=== PATIENT | female | born 1995 | race American Indian/Alaskan Native ===

== ENCOUNTER 2017-05-30 14:55 | Emergency (ER) | payer SELFPAY ==
[2017-05-30 15:12] VITALS: BP 126/75
[2017-05-30 16:48] LABS: HCG Qualitative,Urine Negative (Negative)
[2017-05-30 16:54] LABS: Bilirubin,Urine NEG (Negative); Blood,Urine NEG (Negative); Color,Urine Yellow (Yellow); Mucus,Urine FEW /HPF; Protein,Urine <15 mg/dL mg/dL (Negative)
[2017-05-30 16:56] LABS: WBC,Urine < 1.0 /HPF (0.0-6.0)
--- NOTE | 2017-05-30 18:17 | XRay Report ---
FINAL REPORT PROCEDURE: XR FOOT 3+V RT TECHNIQUE: Right foot, three views HISTORY: Fall/injury COMPARISON: No prior studies are available for comparison. FINDINGS: No acute fracture or dislocation is seen. No focal osseous lesion. No radiopaque foreign body IMPRESSION: No acute fracture is identified
[2017-05-30] MEDS ORDERED: ULTRAM PO ONE (19:09)
[2017-05-30] MEDS ORDERED: MOTRIN PO ONE (19:09)
--- NOTE | 2017-05-30 19:14 | Emergency Department Report ---
ED Extremity Problem HPI - General Chief complaint: Extremity Injury, Lower Stated complaint: RIGHT FOOT PAIN Time Seen by Provider: 05/30/17 19:04 Source: patient Mode of arrival: Ambulatory Limitations: No Limitations - History of Present Illness Initial comments: Patient is a 22-year-old female who was walking down stairs today and tripped and fell. Patient states she has pain at the right foot laterally. Patient states taking pain 8 out of 10 in severity. It's worse when she bears weight or tries to move the foot. Better with rest. She denies any other injury patient states that the ankle and calf for fine and she has no pain - Related Data Previous Rx's Medication Instructions Recorded Last Taken Type Acetaminophen/Codeine [Tylenol #3] 1 tab PO Q6H PRN #15 tab 02/08/15 Unknown Rx HYDROcodone/APAP 5-325 [[place] 1 each PO Q6HR PRN #12 tablet 05/30/17 Unknown Rx 5/325] Ibuprofen [Motrin] 800 mg PO Q8HR PRN #20 tablet 05/30/17 Unknown Rx Allergies Allergy/AdvReac Type Severity Reaction Status Date / Time No Known Allergies Allergy Unverified 02/08/15 13:31 ED Review of Systems ROS: Stated complaint: RIGHT FOOT PAIN Other details as noted in HPI Comment: All other systems reviewed and negative ED Past Medical Hx - Past Medical History Previous Medical History?: No - Surgical History Past Surgical History?: No - Social History Smoking Status: Current Every Day Smoker - Medications Home Medications: Home Medications Medication Instructions Recorded Confirmed Last Taken Type Acetaminophen/Codeine [Tylenol #3] 1 tab PO Q6H PRN #15 tab 02/08/15 Unknown Rx HYDROcodone/APAP 5-325 [[place] 1 each PO Q6HR PRN #12 tablet 05/30/17 Unknown Rx 5/325] Ibuprofen [Motrin] 800 mg PO Q8HR PRN #20 tablet 05/30/17 Unknown Rx ED Physical Exam - General Limitations: No Limitations General appearance: alert, in no apparent distress - Head Head exam: Present: atraumatic, normocephalic - Eye Eye exam: Present: normal appearance - ENT ENT exam: Present: mucous membranes moist - Neck Neck exam: Present: normal inspection - Respiratory Respiratory exam: Absent: respiratory distress - Cardiovascular Cardiovascular Exam: Present: regular rate, normal rhythm. Absent: systolic murmur, diastolic murmur, rubs, gallop - GI/Abdominal GI/Abdominal exam: Present: soft - Extremities Exam Extremities exam: Present: normal inspection, tenderness (patient has tenderness on palpation of the right lateral foot.) - Back Exam Back exam: Present: normal inspection - Neurological Exam Neurological exam: Present: alert, oriented X3 - Psychiatric Psychiatric exam: Present: normal affect, normal mood - Skin Skin exam: Present: warm, dry, intact, normal color. Absent: rash ED Course Vital Signs 05/30/17 15:02 Temperature 98 F Pulse Rate 80 Respiratory 16 Rate Blood Pressure 126/75 O2 Sat by Pulse 98 Oximetry ED Medical Decision Making - Radiology Data Radiology results: image reviewed interpreted by me: No acute fracture Critical care attestation.: If time is entered above; I have spent that time in minutes in the direct care of this critically ill patient, excluding procedure time. ED Disposition Clinical Impression: Foot sprain Qualifiers: Encounter type: initial encounter Laterality: right Qualified Code(s): S93.601A - Unspecified sprain of right foot, initial encounter Disposition: - TO HOME OR SELFCARE Is pt being admited?: No Does the pt Need Aspirin: No Condition: Stable Instructions: Foot Sprain (ED) Prescriptions: HYDROcodone/APAP 5-325 [[place] 5/325] 1 each PO Q6HR PRN #12 tablet PRN Reason: Pain Ibuprofen [Motrin] 800 mg PO Q8HR PRN #20 tablet PRN Reason: Pain Referrals: PRIMARY CARE, [Primary Care Provider] - 3-5 Days
== END 2017-05-30 19:49 | disposition home or self-care (01) ==
LOC: ED 14:55
DX: S93.601A Unspecified sprain of right foot, initial encounter (principal); F17.200 Nicotine dependence, unspecified, uncomplicated; W01.198A Fall on same level from slipping, tripping and stumbling with subsequent striking against other object, initial encounter; Y93.89 Activity, other specified; Y92.89 Other specified places as the place of occurrence of the external cause; Y99.8 Other external cause status
CPT/HCPCS: 81001; 81025

== ENCOUNTER 2019-04-28 11:00 | Emergency (ER) | payer SELFPAY ==
[2019-04-28] MEDS ORDERED: KETOROLAC 30 MG/1 ML INJ IV ONE (11:48)
[2019-04-28] MEDS ORDERED: METOCLOPRAMIDE 10 MG/2 ML INJ IV ONE (11:48)
[2019-04-28] MEDS ORDERED: diphenhydrAMINE 50 MG/ML VIAL IV ONE (11:48)
--- NOTE | 2019-04-28 11:55 | Emergency Department Report ---
Chief Complaint: Headache Stated Complaint: CHEST PAIN, MIGRAINE Time Seen by Provider: 04/28/19 11:47 - HPI History of Present Illness: 24 yo female hx of presumed headaches for years with headache x 2 days + light sensitivity no visual changes or focal deficits no ct scan in "many years" right sided cp this am with sob no travel, control, hx of pe/dvt - Exam Vital Signs: Vital Signs 04/28/19 11:02 Temperature 98 F Pulse Rate 63 Respiratory 18 Rate Blood Pressure 133/80 O2 Sat by Pulse 98 Oximetry Physical Exam: neuro: nonfocal, steady gait neck supple chest wall nontender lung ctab rrr MSE screening note: Focused history and physical exam performed. Due to findings the following was ordered: ekg sinus rate, no stemi, perc pe score [address] head meds migraine cocktail: ilya, benadryl, toradol IV ED Disposition for MSE Condition: Stable Referrals: PRIMARY CARE, [Primary Care Provider] - 3-5 Days
--- NOTE | 2019-04-28 12:22 | XRay Report ---
CHEST 2 VIEWS INDICATION / CLINICAL INFORMATION: chest pain sob. COMPARISON: None available. FINDINGS: SUPPORT DEVICES: None. HEART / MEDIASTINUM: No significant abnormality. LUNGS / PLEURA: No significant pulmonary or pleural abnormality. No pneumothorax. ADDITIONAL FINDINGS: No significant additional findings. IMPRESSION: 1. No acute findings. Signer Name: Ben Miles MD Signed: 04/28/2019 12:17 PM Workstation Name: [id number]
--- NOTE | 2019-04-28 12:38 | Emergency Department Report ---
ED Headache HPI - General Chief Complaint: Headache Stated Complaint: CHEST PAIN, MIGRAINE Time Seen by Provider: 04/28/19 11:47 - History of Present Illness Initial Comments: This is a 24-year-old female she reports having a severe migraine headache. Patient states her symptoms started on evening and had been waxing and waning since the pain increased on Tuesday and this morning at 1:43 AM she woke up at 6 severe right frontal headache describes the pain behind her right eye. She denies nausea vomiting fever chills at this time patient also denies chest pain. She's had previous headaches but believe that this is the worst one. Head Injury Location: frontal Recent Head Trauma: no recent headache/trauma Modifying Factors: improves with: exposure to light Associated Symptoms: denies symptoms Allergies/Adverse Reactions: Allergies No Known Allergies Allergy (Unverified 02/08/15 13:31) Home Medications: Ambulatory Orders Acetaminophen/Codeine [Tylenol #3] 1 tab PO Q6H PRN #15 tab 02/08/15 HYDROcodone/APAP 5-325 [[place] 5/325] 1 each PO Q6HR PRN #12 tablet 05/30/17 Ibuprofen [Motrin] 800 mg PO Q8HR PRN #20 tablet 05/30/17 Acetaminophen/Codeine [Tylenol /Codeine # 3 tab] 1 tab PO Q6H PRN #12 tab 04/28/19 ED Review of Systems ROS: Stated complaint: CHEST PAIN, MIGRAINE Other details as noted in HPI Comment: All other systems reviewed and negative Constitutional: denies: chills, fever Eyes: eye pain (pain behind right eye) Respiratory: no symptoms reported Cardiovascular: denies: chest pain, palpitations, dyspnea on exertion Endocrine: denies: excessive sweating Gastrointestinal: denies: abdominal pain, nausea, vomiting, diarrhea Genitourinary: denies: dysuria Neurological: headache. denies: weakness, numbness, paresthesias, confusion, abnormal gait, vertigo Psychiatric: as per HPI ED Past Medical Hx - Past Medical History Previous Medical History?: No - Surgical History Past Surgical History?: No - Social History Smoking Status: Current Every Day Smoker Substance Use Type: Alcohol - Medications Home Medications: Home Medications Medication Instructions Recorded Confirmed Last Taken Type Acetaminophen/Codeine [Tylenol #3] 1 tab PO Q6H PRN #15 tab 02/08/15 Unknown Rx HYDROcodone/APAP 5-325 [[place] 1 each PO Q6HR PRN #12 tablet 05/30/17 Unknown Rx 5/325] Ibuprofen [Motrin] 800 mg PO Q8HR PRN #20 tablet 05/30/17 Unknown Rx Acetaminophen/Codeine [Tylenol 1 tab PO Q6H PRN #12 tab 04/28/19 Unknown Rx /Codeine # 3 tab] ED Physical Exam - General Limitations: No Limitations General appearance: alert - Head Head exam: Present: atraumatic, normal inspection - Eye Eye exam: Present: PERRL, EOMI. Absent: scleral icterus, conjunctival injection, periorbital swelling, periorbital tenderness Pupils: Present: normal accommodation - ENT ENT exam: Present: normal exam, normal orophraynx, mucous membranes moist, TM's normal bilaterally - Neck Neck exam: Present: normal inspection, full ROM. Absent: lymphadenopathy - Respiratory Respiratory exam: Present: normal lung sounds bilaterally. Absent: respiratory distress, wheezes, rales, rhonchi - Cardiovascular Cardiovascular Exam: Present: regular rate, normal rhythm - GI/Abdominal GI/Abdominal exam: Present: soft. Absent: distended, tenderness, guarding - Extremities Exam Extremities exam: Present: normal inspection, full ROM - Back Exam Back exam: Present: normal inspection - Neurological Exam Neurological exam: Present: alert, CN II-XII intact, other (muscle strength 5/5 bilaterally) - Psychiatric Psychiatric exam: Present: normal affect - Skin Skin exam: Present: warm, dry, intact ED Course Vital Signs 04/28/19 04/28/19 04/28/19 11:02 12:27 13:09 Temperature 98 F Pulse Rate 63 Respiratory 18 18 18 Rate Blood Pressure 133/80 O2 Sat by Pulse 98 99 Oximetry - Reevaluation(s) Reevaluation #1: 04/28/19 13:24 At bedside pt resting states her headache is subsiding. CT of head shows no acute findings. Pt informed of the results. Pt also states that Ibuprofen does not work for headache and Tylenol #3 usually works better. ED Medical Decision Making - Radiology Data Radiology results: report reviewed CT head IMPRESSION: 1. There is no CT evidence of acute intracranial process. - Medical Decision Making 24-year-old female came to the ER with a progressive headache over the last 2 days. The headache became severe around 1:43 AM and she sought medical attention. R frontal headache with pain behind the right eye. She was also extremely sensitive to light. She exhibited no weakness or other neurological symptoms she was treated with Toradol and Benadryl and Reglan. CAT scan of her head had no acute findings. All findings discussed with the patient she is discharged home to follow-up with her own PCP Critical Care Time: No Critical care attestation.: If time is entered above; I have spent that time in minutes in the direct care of this critically ill patient, excluding procedure time. ED Disposition Clinical Impression: Migraine Qualifiers: Migraine type: unspecified Status migrainosus presence: without status migrainosus Intractability: not intractable Qualified Code(s): G43.909 - Migraine, unspecified, not intractable, without status migrainosus Disposition: DC- TO HOME OR SELFCARE Is pt being admited?: No Does the pt Need Aspirin: No Condition: Stable Instructions: Migraine Headache (ED) Additional Instructions: Rest increase oral hydration. Stop smoking cigarettes. Prescriptions: Acetaminophen/Codeine [Tylenol /Codeine # 3 tab] 1 tab PO Q6H PRN #12 tab PRN Reason: Pain , Severe (7-10) Referrals: PRIMARY CARE, [Primary Care Provider] - 3-5 Days Time of Disposition: 13:31
--- NOTE | 2019-04-28 12:39 | Cat Scan Report ---
CT head without contrast. INDICATION / CLINICAL INFORMATION: 24 years Female; headache. TECHNIQUE: Routine CT head without contrast. All CT scans at this location are performed using CT dos e reduction for ALARA by means of automated exposure control. COMPARISON: None. FINDINGS: BRAIN / INTRACRANIAL CONTENTS: The brain demonstrate appropriate attenuation. The ventricular system is within normal limits in size and configuration. There is no CT evidence of acute intracranial hemo rrhage or significant mass effect. ORBITS: No significant abnormality of visualized orbits. SINUSES / MASTOIDS: No significant abnormality the visualized paranasal sinuses or mastoid air cells. CRANIOCERVICAL JUNCTION: No significant abnormality. ADDITIONAL FINDINGS: None. IMPRESSION: 1. There is no CT evidence of acute intracranial process. Signer Name: De Carroll MD Signed: 04/28/2019 12:35 PM Workstation Name: [id number]
[2019-04-28 14:06] VITALS: BP 121/66
== END 2019-04-28 13:46 | disposition home or self-care (01) ==
LOC: ED 11:00
DX: G43.909 Migraine, unspecified, not intractable, without status migrainosus (principal); F17.200 Nicotine dependence, unspecified, uncomplicated; Z79.899 Other long term (current) drug therapy
CPT/HCPCS: 70450; 71046; 93005; 93010; 96374; 96375; 99284; J1200; J1885; J2765

== ENCOUNTER 2019-05-29 09:28 | Emergency (ER) | payer SELFPAY ==
[2019-05-29 09:50] VITALS: BP 132/72
--- NOTE | 2019-05-29 11:58 | Emergency Department Report ---
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 Patient stated she is asymptotic beside itching and blistering to left lower lip area. No lip abrasoin or lac noted. Denies any pus or tenderness. Patient denies any fever, chills, headache, nausea, vomiting, chest pain or shortness of breathe. denies any other symptoms or complaints. Denies any allergies or PMH. - Exam Vital Signs: Vital Signs 05/29/19 09:48 Temperature 98.9 F Pulse Rate 65 Respiratory 18 Rate Blood Pressure 132/72 O2 Sat by Pulse 99 Oximetry Physical Exam: few blisters to left lower lip noted. no swelling. no cellulitis. no abscess. no abrasion. no lac. normal pysical exam. MSE screening note: Focused history and physical exam performed. Due to findings the following was ordered: ED Medical Decision Making - Medical Decision Making This is a 24-year-old female that presents with nonmedical emergency complaint. I gave patient many different referrals to follow-up with a PCP that is open today and available to see patients today. Patient was instructed to Follow- up with a primary care doctor or if symptoms worsen and continue return to emergency room as soon as possible. At time of discharge, the patient does not seem toxic or ill in appearance. No acute signs of distress noted. Patient agrees to discharge treatment plan of care. No further questions noted by the patient. ED Disposition for MSE Clinical Impression: Cold sore Disposition: Z-07 MED SCREENING EXAM-LEFT Is pt being admited?: No Does the pt Need Aspirin: No Condition: Stable Additional Instructions: Follow-up with a primary care doctor or if symptoms worsen and continue return to emergency room as soon as possible. Referrals: MAXIMUS OLIVARES MD [Primary Care Provider] - 3-5 Days PRIMARY CAREMD [Referring] - 3-5 Days CASSIE BATISTA MD [Staff Physician] - 3-5 Days [facility] [Outside] - 3-5 Days
== END 2019-05-29 12:05 | disposition left against medical advice (07) ==
LOC: ED 09:28
DX: B00.1 Herpesviral vesicular dermatitis (principal)
CPT/HCPCS: 99281

== ENCOUNTER 2021-02-03 04:32 | Emergency (ER) | payer SELFPAY ==
[2021-02-03] MEDS ORDERED: dexAMETHasone 4 MG/ML VIAL IM STA (05:50)
--- NOTE | 2021-02-03 06:01 | Emergency Department Report ---
ED General Adult HPI - General Chief complaint: Sore Throat Stated complaint: SOB SORE THROAT EAR INFECTION Time Seen by Provider: 02/03/21 05:14 Source: patient Mode of arrival: Ambulatory Limitations: No Limitations - History of Present Illness Initial comments: 25-year-old -[place] female patient presents with complaints of sore throat x2 days. Patient states pain worsens with swallowing and that her throat feels like it is closing. She denies any fever/chills/sweats. She has not tried any OTC medications for symptoms. No past medical history per patient. She rates her current pain as a 9/10 in severity. She also denies any cough, shortness of breath, or chest pain. Severity scale (0 -10): 10 - Related Data Previous Rx's Medication Instructions Recorded Last Taken Type Acetaminophen/Codeine [Tylenol #3] 1 tab PO Q6H PRN #15 tab 02/08/15 Unknown Rx HYDROcodone/APAP 5-325 [[place] 1 each PO Q6HR PRN #12 tablet 05/30/17 Unknown Rx 5/325] Ibuprofen [Motrin] 800 mg PO Q8HR PRN #20 tablet 05/30/17 Unknown Rx Acetaminophen/Codeine [Tylenol 1 tab PO Q6H PRN #12 tab 04/28/19 Unknown Rx /Codeine # 3 tab] Amoxicillin [Trimox CAP] 500 mg PO BID 10 Days #20 capsule 02/03/21 Unknown Rx Ibuprofen [Motrin 800 MG tab] 800 mg PO Q8HR PRN #20 tablet 02/03/21 Unknown Rx Allergies Allergy/AdvReac Type Severity Reaction Status Date / Time No Known Allergies Allergy Verified 02/03/21 04:37 ED Review of Systems ROS: Stated complaint: SOB SORE THROAT EAR INFECTION Other details as noted in HPI Constitutional: denies: chills, diaphoresis, fever, malaise, weakness ENT: throat pain Respiratory: denies: cough, shortness of breath Cardiovascular: denies: chest pain Skin: denies: rash, lesions ED Past Medical Hx - Past Medical History Previous Medical History?: No - Surgical History Past Surgical History?: No - Social History Smoking Status: Current Every Day Smoker Substance Use Type: Alcohol, Marijuana - Medications Home Medications: Home Medications Medication Instructions Recorded Confirmed Last Taken Type Acetaminophen/Codeine [Tylenol #3] 1 tab PO Q6H PRN #15 tab 02/08/15 Unknown Rx HYDROcodone/APAP 5-325 [[place] 1 each PO Q6HR PRN #12 tablet 05/30/17 Unknown Rx 5/325] Ibuprofen [Motrin] 800 mg PO Q8HR PRN #20 tablet 05/30/17 Unknown Rx Acetaminophen/Codeine [Tylenol 1 tab PO Q6H PRN #12 tab 04/28/19 Unknown Rx /Codeine # 3 tab] Amoxicillin [Trimox CAP] 500 mg PO BID 10 Days #20 capsule 02/03/21 Unknown Rx Ibuprofen [Motrin 800 MG tab] 800 mg PO Q8HR PRN #20 tablet 02/03/21 Unknown Rx ED Physical Exam - General Limitations: No Limitations General appearance: alert, in no apparent distress, obese - Head Head exam: Present: atraumatic, normocephalic - Eye Eye exam: Present: normal appearance - ENT ENT exam: Present: mucous membranes moist - Expanded ENT Exam Expanded Mouth exam: Present: tongue normal. Absent: drooling, trismus, muffled voice Throat exam: Positive: tonsillar erythema (Bilateral), tonsillomegaly (2+ bilaterally), tonsillar exudate (Mild bilateral), other (Uvula is midline). Negative: R peritonsillar mass, L peritonsillar mass - Neck Neck exam: Present: full ROM, lymphadenopathy - Respiratory Respiratory exam: Present: normal lung sounds bilaterally. Absent: respiratory distress - Cardiovascular Cardiovascular Exam: Present: regular rate - Neurological Exam Neurological exam: Present: alert, oriented X3, normal gait - Psychiatric Psychiatric exam: Present: normal affect, normal mood - Skin Skin exam: Present: warm, dry, intact, normal color. Absent: rash ED Course Vital Signs 02/03/21 04:34 Temperature 99.2 F Pulse Rate 85 Respiratory 17 Rate Blood Pressure 126/73 [Right] O2 Sat by Pulse 99 Oximetry ED Medical Decision Making - Medical Decision Making 25-year-old -[place] female patient presents with complaints of sore throat x2 days. Patient states pain worsens with swallowing and that her throat feels like it is closing. She denies any fever/chills/sweats. She has not tried any OTC medications for symptoms. No past medical history per patient. She rates her current pain as a 9/10 in severity. She also denies any cough, shortness of breath, or chest pain. Empiric antibiotics given for strep pharyngitis given exam and history. Discussed signs and symptoms that should prompt immediate return to the ED with patient who verbalizes understanding. She is well-appearing, her vitals are within normal limits, she is stable for discharge home. Critical care attestation.: If time is entered above; I have spent that time in minutes in the direct care of this critically ill patient, excluding procedure time. ED Disposition Clinical Impression: Strep pharyngitis Disposition: HOME / SELF CARE / HOMELESS Is pt being admited?: No Condition: Stable Instructions: Strep Throat, Adult, [id number] Prescriptions: Ibuprofen [Motrin 800 MG tab] 800 mg PO Q8HR PRN #20 tablet PRN Reason: pain Amoxicillin [Trimox CAP] 500 mg PO BID 10 Days #20 capsule Referrals: [facility] [Provider Group] - 3-5 Days
[2021-02-03] MEDS ORDERED: IBUPROFEN ORAL LIQD 100 MG/5 ML ORAL.LIQD PO ONE (06:02)
[2021-02-03 06:47] VITALS: BP 115/73
== END 2021-02-03 06:35 | disposition home or self-care (01) ==
LOC: ED 04:32
DX: J02.0 Streptococcal pharyngitis (principal); F17.200 Nicotine dependence, unspecified, uncomplicated
CPT/HCPCS: 96372; 99282; J1100

== ENCOUNTER 2021-03-11 23:20 | Emergency (ER) | payer SELFPAY ==
[2021-03-11 23:24] VITALS: BP 130/79
[2021-03-12] MEDS ORDERED: PENICILLIN G BENZATHINE 1.2 MILLION UNIT/2 ML INJ IM STA (04:31)
[2021-03-12] MEDS ORDERED: dexAMETHasone 4 MG/ML VIAL PO ONE (04:31)
--- NOTE | 2021-03-12 04:53 | Emergency Department Report ---
ED ENT HPI - General Chief complaint: Sore Throat Stated complaint: CHEST TIGHT SORE THROAT Time Seen by Provider: 03/12/21 04:31 Source: patient Mode of arrival: Ambulatory Limitations: No Limitations - History of Present Illness MD complaint: sore throat -: Gradual Location: throat Severity: mild, moderate Quality: aching, dull Consistency: constant Improves with: none Worsens with: swallowing - Related Data Previous Rx's Medication Instructions Recorded Last Taken Type Acetaminophen/Codeine [Tylenol #3] 1 tab PO Q6H PRN #15 tab 02/08/15 Unknown Rx HYDROcodone/APAP 5-325 [[place] 1 each PO Q6HR PRN #12 tablet 05/30/17 Unknown Rx 5/325] Ibuprofen [Motrin] 800 mg PO Q8HR PRN #20 tablet 05/30/17 Unknown Rx Acetaminophen/Codeine [Tylenol 1 tab PO Q6H PRN #12 tab 04/28/19 Unknown Rx /Codeine # 3 tab] Amoxicillin [Trimox CAP] 500 mg PO BID 10 Days #20 capsule 02/03/21 Unknown Rx Ibuprofen [Motrin 800 MG tab] 800 mg PO Q8HR PRN #20 tablet 02/03/21 Unknown Rx Allergies Allergy/AdvReac Type Severity Reaction Status Date / Time No Known Allergies Allergy Verified 02/03/21 04:37 ED Dental HPI - General Chief complaint: Sore Throat Stated complaint: CHEST TIGHT SORE THROAT Time Seen by Provider: 03/12/21 04:31 Source: patient Mode of arrival: Ambulatory Limitations: No Limitations - Related Data Previous Rx's Medication Instructions Recorded Last Taken Type Acetaminophen/Codeine [Tylenol #3] 1 tab PO Q6H PRN #15 tab 02/08/15 Unknown Rx HYDROcodone/APAP 5-325 [[place] 1 each PO Q6HR PRN #12 tablet 05/30/17 Unknown Rx 5/325] Ibuprofen [Motrin] 800 mg PO Q8HR PRN #20 tablet 05/30/17 Unknown Rx Acetaminophen/Codeine [Tylenol 1 tab PO Q6H PRN #12 tab 04/28/19 Unknown Rx /Codeine # 3 tab] Amoxicillin [Trimox CAP] 500 mg PO BID 10 Days #20 capsule 02/03/21 Unknown Rx Ibuprofen [Motrin 800 MG tab] 800 mg PO Q8HR PRN #20 tablet 02/03/21 Unknown Rx Allergies Allergy/AdvReac Type Severity Reaction Status Date / Time No Known Allergies Allergy Verified 02/03/21 04:37 ED Review of Systems ROS: Stated complaint: CHEST TIGHT SORE THROAT Other details as noted in HPI Comment: All other systems reviewed and negative ED Past Medical Hx - Past Medical History Previous Medical History?: No - Surgical History Past Surgical History?: No - Social History Smoking Status: Current Every Day Smoker Substance Use Type: Alcohol, Marijuana - Medications Home Medications: Home Medications Medication Instructions Recorded Confirmed Last Taken Type Acetaminophen/Codeine [Tylenol #3] 1 tab PO Q6H PRN #15 tab 02/08/15 Unknown Rx HYDROcodone/APAP 5-325 [[place] 1 each PO Q6HR PRN #12 tablet 05/30/17 Unknown Rx 5/325] Ibuprofen [Motrin] 800 mg PO Q8HR PRN #20 tablet 05/30/17 Unknown Rx Acetaminophen/Codeine [Tylenol 1 tab PO Q6H PRN #12 tab 04/28/19 Unknown Rx /Codeine # 3 tab] Amoxicillin [Trimox CAP] 500 mg PO BID 10 Days #20 capsule 02/03/21 Unknown Rx Ibuprofen [Motrin 800 MG tab] 800 mg PO Q8HR PRN #20 tablet 02/03/21 Unknown Rx ED Physical Exam - General Limitations: No Limitations General appearance: alert, in no apparent distress - Head Head exam: Present: atraumatic, normocephalic - Eye Eye exam: Present: normal appearance, PERRL, EOMI - ENT ENT exam: Present: normal exam, normal orophraynx, mucous membranes moist, TM's normal bilaterally, other - Neck Neck exam: Present: normal inspection, full ROM - Respiratory Respiratory exam: Present: normal lung sounds bilaterally. Absent: respiratory distress - Cardiovascular Cardiovascular Exam: Present: regular rate, normal rhythm. Absent: systolic murmur, diastolic murmur, rubs, gallop - GI/Abdominal GI/Abdominal exam: Present: soft, normal bowel sounds - Extremities Exam Extremities exam: Present: normal inspection - Back Exam Back exam: Present: normal inspection - Neurological Exam Neurological exam: Present: alert, oriented X3 - Psychiatric Psychiatric exam: Present: normal affect, normal mood - Skin Skin exam: Present: warm, dry, intact, normal color. Absent: rash ED Course Vital Signs 03/11/21 23:23 Temperature 97.8 F Pulse Rate 60 Respiratory 18 Rate Blood Pressure 130/79 O2 Sat by Pulse 98 Oximetry Critical care attestation.: If time is entered above; I have spent that time in minutes in the direct care of this critically ill patient, excluding procedure time. ED Disposition Clinical Impression: Pharyngitis Disposition: HOME / SELF CARE / HOMELESS Is pt being admited?: No Does the pt Need Aspirin: No Condition: Stable Instructions: Strep Throat, Adult, Pharyngitis, Upper Respiratory Infection, Adult, [id number] Referrals: PRIMARY CARE [Primary Care Provider] - 3-5 Days [facility] [Provider Group] - 3-5 Days
== END 2021-03-12 05:20 | disposition home or self-care (01) ==
LOC: ED 23:20
DX: J02.9 Acute pharyngitis, unspecified (principal)
CPT/HCPCS: 96372; 99282; J0561; J1100